=== PATIENT | female | born 1945 | race Caucasian/White ===

== ENCOUNTER 2017-02-16 11:02 | Emergency (ER) | payer OTHER ==
[~2017-02-16] VITALS: Ht 167.6 cm; Wt 110.9 kg
[~2017-02-16 11:02] MED LIST: PERCOCET 5/31 TABLET PO; ZOFRAN4 MG PO
[2017-02-16 12:36] LABS: MCHC 33.7 G/DL (30.0-36.0); MCV 97.8 FL (83-99); MEAN PLAT.VOLUME 9.7 uM^3 (9.5-12.4); PLATELET COUNT 196 K/uL (156-360); RBC DIS.WIDTH-CV 12.8 % (11.8-14.6); RBC DIS.WIDTH-SD 46.1 % (39-53); RED BLOOD COUNT 3.58 M/uL (3.80-5.20); WHITE BLOOD COUNT 7.8 K/uL (4.1-10.2)
[2017-02-16 12:50] LABS: CHLORIDE 107 mEq/L (99-109); POTASSIUM 4.2 mEq/L (3.7-5.4); SODIUM 140 mEq/L (136-147)
[2017-02-16 12:52] LABS: GLUCOSE 101 mg/dL (70-99)
[2017-02-16 12:54] LABS: ANION GAP 11 MEQ/L (2-14)
[2017-02-16 12:56] LABS: GFR ESTIMATE (CALCULATED) 58 mL/min/
[2017-02-16 12:57] LABS: UREA NITROGEN (BUN) 28 mg/dL (9-23)
[2017-02-16] MEDS ORDERED: DOXYCYCLINE HY100 MG PO (13:12)
[2017-02-16 16:04] VITALS: BP 126/74
== END 2017-02-16 15:30 | disposition home or self-care (01) ==
LOC: EME 11:02
PROVIDERS: Emergency Medicine
DX: L03.115 Cellulitis of right lower limb (principal); L03.116 Cellulitis of left lower limb; E11.9 Type 2 diabetes mellitus without complications; Z79.4 Long term (current) use of insulin; I10 Essential (primary) hypertension; E03.9 Hypothyroidism, unspecified; Z88.8 Allergy status to other drugs, medicaments and biological substances
CPT/HCPCS: 80048; 85027; 99281; 99285; J3370; J7030